=== PATIENT | male | born 1975 ===

== ENCOUNTER → 2019-09-16 | Outpatient (CLI) | payer OTHER ==
[~2019-09-16] MED LIST: ALBU90OI INH; CEPH500 PO; HYDACE5 PO; PRED20 PO
== END | disposition home or self-care (01) ==
LOC: LAB SHORT 17:28 → LAB 17:28
DX: L08.9 Local infection of the skin and subcutaneous tissue, unspecified (principal)
CPT/HCPCS: 87070; 87075; 87077; 87147; 87186; 87205

== ENCOUNTER → 2020-10-16 | Outpatient (CLI) | payer OTHER ==
[~2020-10-16] MED LIST changes: +Cialis5 MG
== END | disposition home or self-care (01) ==
LOC: LAB 15:52 → LAB SHORT 15:52
DX: L08.9 Local infection of the skin and subcutaneous tissue, unspecified (principal)
CPT/HCPCS: 87070; 87205

== ENCOUNTER 2020-10-21 14:33 | Day surgery (SDC) | payer OTHER ==
[~2020-10-21] VITALS: Ht 180.3 cm; Wt 111.5 kg
[~2020-10-21 14:33] MED LIST changes: -Cialis5 MG
[2020-10-21] MEDS ORDERED: Cialis5 MG (15:05)
--- NOTE | 2020-10-21 17:46 | NUR ---
10/21/20 1746 Carmelita Hogan PATIENT TO STEPDOWN, SLEEPING. VITAL STABLE. PATIENT AWAKE AT 1737 AND ORAL AIRWAY IS REMOVED. PATIENT IS TALKING NOW AND APPROPRIATE. NO PAIN IN KNEE AT THIS TIME. AT 1745 PATIENT ABLE TO TRANSFER TO RECLINER WITHOUT DIFFICULTY. NO PAIN, NO NAUSEA, NO PROBLEMS
== END 2020-10-21 18:10 | disposition home or self-care (01) ==
LOC: ORSCSDS 14:33
PROVIDERS: Orthopaedic Surgery
PROC: 0JBP0ZZ Excision of Left Lower Leg Subcutaneous Tissue and Fascia, Open Approach (ICD-10-PCS; principal; 2020-10-21 15:45)
DX: L72.0 Epidermal cyst (principal); Z87.891 Personal history of nicotine dependence; E66.9 Obesity, unspecified; Z68.34 Body mass index [BMI] 34.0-34.9, adult; Z79.899 Other long term (current) drug therapy
CPT/HCPCS: 87070; 87205; 88304; J0690; J1100; J1885; J2250; J2405; J2704; J2795; J3010; J7120

== ENCOUNTER 2021-10-08 00:45 | Emergency (ER) | payer OTHER ==
[~2021-10-08] VITALS: Ht 180.3 cm; Wt 113.4 kg
[~2021-10-08 00:45] MED LIST changes: +Cialis5 MG
[2021-10-08 01:57] LABS: BASOPHILS ABSOLUTE AUTO 0.03 K/mm3 (0.00-0.23); BASOPHILS PERCENT AUTO 0 % (0-2); EOSINOPHILS ABSOLUTE AUTO 0.01 K/mm3 (0.00-0.68); EOSINOPHILS PERCENT AUTO 0 % (0-6); Hematocrit 45.7 % (37.0-53.0); Hemoglobin 15.2 g/dL (13.5-17.5); IMMATURE GRAN ABSOLUTE AUTO 0.09 K/mm3 (0.00-0.10); IMMATURE GRAN PERCENT AUTO 1 % (0-1); LYMPHOCYTES ABSOLUTE AUTO 1.65 K/mm3 (0.84-5.20); LYMPHOCYTES PERCENT AUTO 18 % (21-46); MONOCYTES ABSOLUTE AUTO 1.09 K/mm3 (0.16-1.47); MONOCYTES PERCENT AUTO 12 % (4-13); Mean Corpuscular HGB 29.9 pg (26.0-34.0); Mean Corpuscular HGB Conc 33.3 g/dL (31.5-36.5); Mean Corpuscular Volume 90 fL (80-100); NEUTROPHILS ABSOLUTE AUTO 6.25 K/mm3 (1.96-9.15); NEUTROPHILS PERCENT AUTO 69 % (41-73); Platelet Count 225 K/mm3 (150-400); RDW Coefficient Variation 13.6 % (11.7-14.2); RDW Standard Deviation 45.3 fL (35.1-46.3); Red Blood Cell Count 5.08 M/mm3 (4.30-5.90); White Blood Cell Count 9.12 K/mm3 (4.00-11.30)
[2021-10-08 02:03] LABS: Alanine Aminotransfer (ALT/SGP 46 U/L (12-78); Albumin, Blood 3.5 g/dL (3.4-5.0); Albumin/Globulin Ratio 0.9 (0.8-1.8); Alk Phos 69 U/L (50-136); Anion Gap 6 mmol/L (6-16); Aspartate Aminotrans (AST/SGOT 25 U/L (12-37); Bilirubin, Total 1.1 mg/dL (0.1-1.0); Blood Urea Nitrogen 11 mg/dL (8-24); CO2, Blood 26 mmol/L (21-32); Calcium, Blood 9.1 mg/dL (8.5-10.1); Chloride, Blood 104 mmol/L (98-108); Glomerular Filtration Rate >60 (60-); Glucose, Blood 126 mg/dL (70-99); Potassium, Blood 4.1 mmol/L (3.5-5.5); Sodium, Blood 136 mmol/L (136-145); Total Protein, Blood 7.5 g/dL (6.4-8.2)
[2021-10-08] MEDS ORDERED: EUTHYROX75 MC1 PO (02:04)
[2021-10-08] MEDS ORDERED: LIOT5 PO (02:04)
[2021-10-08 02:16] LABS: Source, Urine Clean Catch
[2021-10-08 02:17] LABS: Bilirubin, Urine Neg (Neg); Blood, Urine 2+ (Neg); Glucose Qualitative, Urine Neg (Neg); Ketones, Urine Neg (Neg); Leukocyte Esterase, Urine Neg (Neg); Nitrite, Urine Neg (Neg); Protein, Urine 1+ (Neg); Urobilinogen, Urine 1+ (Normal)
[2021-10-08 02:24] LABS: Appearance, Urine Clear (Clear); Color, Urine Yellow (P-Yellow)
[2021-10-08 02:25] LABS: Amorphous Light (0-Heavy); Bacteria Rare /hpf; Mucus Light (0-Heavy); Squamous Epithelial Cells Not Seen /hpf (Few); White Blood Cells, Urine Not Seen /hpf (0-5)
[2021-10-08] MEDS ORDERED: ONDA4ODT MM (06:45)
[2021-10-09] MEDS ORDERED: PROM25 PO (13:06)
[2021-10-09] MEDS ORDERED: Norco 5-325 Ta1 EACH PO (13:06)
[2021-10-09] MEDS ORDERED: IBUP600 PO (13:06)
== END 2021-10-08 06:55 | disposition home or self-care (01) ==
LOC: ER 00:45
PROVIDERS: Physician Assistant
DX: K52.9 Noninfective gastroenteritis and colitis, unspecified (principal); Z87.891 Personal history of nicotine dependence
CPT/HCPCS: 36415; 51798; 74176; 80053; 81001; 83690; 85025; 96374; 96375; 99284-25; A9270; J1885; J2405; J7030